=== PATIENT | male | born 1960 | race Caucasian/White ===

== ENCOUNTER 2021-05-16 09:45 | Emergency (ER) | payer MEDICAID ==
[~2021-05-16] VITALS: Ht 170.2 cm; Wt 95.0 kg
[2021-05-16] MEDS ORDERED: LORAZEPAM 2MG/ML CPJ IV ONE (10:15)
[2021-05-16 10:34] LABS: HEMATOCRIT. 43.7 % (42.0-52.0); HEMOGLOBIN. 14.6 g/dL (14.0-18.0); MEAN CORPUSCULAR HEMOGLOBIN 29.5 pg (28.0-32.0); MEAN CORPUSCULAR VOLUME 88.4 fL (80.0-94.0); MEAN PLATELET VOLUME 9.8 fl (7.4-10.4); PLATELET 183 x1000/uL (130-400); RED BLOOD CELL COUNT 4.94 mill/uL (4.7-6.1); RED CELL DISTRIBUTION WIDTH 13.2 % (11.6-14.6)
[2021-05-16 10:41] LABS: CHLORIDE 107 mEq/L (98-107)
[2021-05-16 10:45] LABS: ETHANOL BLOOD < 10 mg/dL
[2021-05-16 10:58] LABS: PLATELET ESTIMATE NORMAL
[2021-05-16] MEDS ORDERED: LEVETIRACETAM 1000MG PREMIX 100 ML IV NR (12:10)
[2021-05-16] MEDS ORDERED: KEPP500 MT (16:46)
[2021-05-16 17:00] VITALS: BP 154/88
== END 2021-05-16 18:59 | disposition home or self-care (01) ==
LOC: ER 10:05
DX: G40.909 Epilepsy, unspecified, not intractable, without status epilepticus (principal); I10 Essential (primary) hypertension
CPT/HCPCS: 36415; 70450; 80053; 80320; 84443; 84484; 85025; 96374; 99285; J1953; G0480

== ENCOUNTER 2023-03-02 14:06 | Emergency (ER) | payer OTHER ==
[~2023-03-02] VITALS: Ht 165.1 cm; Wt 81.0 kg
[~2023-03-02 14:06] MED LIST: KEPP500 MT
[2023-03-02 14:08] VITALS: TEMP 98.2; O2SAT 96
[2023-03-02] MEDS ORDERED: LEVETIRACETAM 500MG PREMIX 100 ML IV ONE ×2 (14:45)
[2023-03-02] MEDS ORDERED: LORAZEPAM 2MG/ML CPJ IV ONE (14:45)
[2023-03-02] MEDS ORDERED: SODIUM CHLORIDE 0.9% 1,000 ML IV ONE ×2 (14:45)
[2023-03-02 14:52] LABS: BASOPHILS % 0.9 % (0.0-2.0); EOSINOPHILS % 2.4 % (0.0-5.0); HEMATOCRIT. 41.5 % (42.0-52.0); HEMOGLOBIN. 14.4 g/dL (14.0-18.0); LYMPHOCYTES % 20.1 % (20.0-50.0); MEAN CORPUSCULAR HEMOGLOBIN 29.9 pg (28.0-32.0); MEAN CORPUSCULAR HGB CONC 34.7 g/dL (31.0-37.0); MONOCYTES % 6.2 % (2.0-8.0); NEUTROPHILS % 70.4 % (40.0-76.0); PLATELET 144 x1000/uL (130-400); RED BLOOD CELL COUNT 4.82 mill/uL (4.7-6.1); RED CELL DISTRIBUTION WIDTH 13.2 % (11.6-14.6); WHITE BLOOD COUNT 5.6 x1000/uL (4.5-11.0)
[2023-03-02 15:50] LABS: ALANINE AMINOTRANSFERASE 32 IU/L (13-61); ALBUMIN 3.7 g/dL (3.4-5.0); ASPARTATE AMINOTRANSFERASE 14 IU/L (15-37); BILIRUBIN TOTAL 0.9 mg/dL (0.1-1.0); CARBON DIOXIDE 28 mEq/L (21-32); CHLORIDE 95 mEq/L (98-107); INDEX HEMOLYSI 2 (1-3); INDEX ICTERIC 1 (1-4); INDEX LIPEMIC 1 (1-3); NT PRO B-TYPE NATRIURETIC PEP 160 pg/mL (5-125); POTASSIUM 3.3 mEq/L (3.5-5.1); PROTEIN TOTAL 6.8 g/dL (6.0-8.3); SODIUM 133 mEq/L (136-145); TROPONIN I HIGH SENSITIVITY 41 ng/L (<78); UREA NITROGEN BLOOD 25 mg/dL (7-21)
[2023-03-02 16:31] LABS: GLUCOSE 735 mg/dL (70-105)
[2023-03-02] MEDS ORDERED: INSULIN REGULAR (HUMULIN R) 300UNITS/3ML VIAL IV STA (17:28)
[2023-03-02 22:00] VITALS: BP 153/99; PULSE 70; RESP 14
[2023-03-03] MEDS ORDERED: INSULIN REGULAR (HUMULIN R) 300UNITS/3ML VIAL SUBCUT ONE (00:15)
== END 2023-03-03 00:55 | disposition short-term general hospital (02) ==
LOC: ER 14:06 → EDBEDREQ 18:38 → ER 03-03 00:55
DX: R41.82 Altered mental status, unspecified (principal); R73.9 Hyperglycemia, unspecified; I10 Essential (primary) hypertension
CPT/HCPCS: 80053; 82010; 82962; 83880; 85025; 84484; 36415; 71045; 70450; 93005; 96365; 96372; 96375; 99285; J1953; J1815 ×2; J2060; J7030; Z7610

== ENCOUNTER 2024-01-13 22:08 | Emergency (ER) | payer MEDICAID, OTHER ==
[~2024-01-13] VITALS: Ht 162.6 cm; Wt 70.0 kg
[2024-01-13 22:26] VITALS: O2SAT 98
[2024-01-14 00:02] LABS: EOSINOPHILS % 3.3 % (0.0-5.0); HEMATOCRIT. 42.2 % (42.0-52.0); HEMOGLOBIN. 14.3 g/dL (14.0-18.0); LYMPHOCYTES % 32.5 % (20.0-50.0); MEAN CORPUSCULAR HEMOGLOBIN 29.9 pg (28.0-32.0); MEAN CORPUSCULAR VOLUME 87.9 fL (80.0-94.0); MEAN PLATELET VOLUME 9.3 fl (7.4-10.4); MONOCYTES % 6.7 % (2.0-8.0); NEUTROPHILS % 56.5 % (40.0-76.0); PLATELET 177 x1000/uL (130-400); WHITE BLOOD COUNT 6.5 x1000/uL (4.5-11.0)
[2024-01-14 00:10] LABS: CARBON DIOXIDE 31 mEq/L (21-32); CHLORIDE 98 mEq/L (98-107); POTASSIUM 3.1 mEq/L (3.5-5.1); SODIUM 134 mEq/L (136-145)
[2024-01-14 00:11] LABS: CALCIUM 9.3 mg/dL (8.7-10.4)
[2024-01-14] MEDS: KETOROLAC 30MG/ML VIAL IM ONE (00:15)
[2024-01-14 00:16] LABS: UREA NITROGEN BLOOD 10 mg/dL (9-23)
[2024-01-14 00:32] LABS: GLUCOSE 421 mg/dL (70-105)
[2024-01-14] MEDS: SODIUM CHLORIDE 0.9% 1,000 ML IV ONE (00:45)
[2024-01-14] MEDS: POTASSIUM CHLORIDE 20MEQ TABLET SR PO ONE (01:05)
[2024-01-14] MEDS ORDERED: CEPH500C2 MT (01:18)
[2024-01-14] MEDS ORDERED: IBUP-2030 MT (01:20)
[2024-01-14] MEDS: TETANUS, DIPHTHERIA, PERTUSSIS VAC/PF 0.5ML (>10YR OLD) IM ONE (02:19)
[2024-01-14 02:30] VITALS: BP 156/85; PULSE 69; RESP 17; TEMP 36.61404; O2SAT 99
== END 2024-01-14 02:33 | disposition home or self-care (01) ==
LOC: ER 22:08
DX: T25.522A Corrosion of first degree of left foot, initial encounter (principal); E11.9 Type 2 diabetes mellitus without complications; I10 Essential (primary) hypertension; Y93.89 Activity, other specified; Y92.89 Other specified places as the place of occurrence of the external cause; Y99.8 Other external cause status
CPT/HCPCS: 80048; 85025; 36415; 73630; 99284; 90715; 90471; 96372; J1885; J7030; Z7610; 96374